=== PATIENT | female | born 1980 | race Caucasian/White ===

== ENCOUNTER 2017-03-29 05:45 | Inpatient (IN) | payer OTHER ==
--- NOTE | 2017-03-24 22:18 | PREOPHP ---
DATE OF ADMISSION: 03/19/2017 HISTORY OF PRESENT ILLNESS: This is a 35-year-old female, 5, para 1, with 3 abortions, EDC of 04/06/2017. This patient had a previous section in 2007, and she had care with me in the office since 11 weeks of . This patient is gained about 30 pounds this and she had only complications with hemorrhoids that had been thrombosed. 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 She at the beginning had the risk for placenta accrete but the placenta moved away and is low lying, it was low lying for while and then moved away, being away and anterior placenta. PAST MEDICAL HISTORY: For this section and a history of fibroids in the uterus. Otherwise has been healthy. SOCIAL HISTORY: With no history of drug addiction, smoking, alcohol, or drugs. ALLERGIES: SHE IS NOT ALLERGIC TO ANY MEDICATION. FAMILY HISTORY: For breast cancer in her grandmother. PHYSICAL EXAMINATION: VITAL SIGNS: She is 5 foot 2 inch. She weighs 165 pounds. The blood pressure is 110/60, pulse is 80, respirations 16. HEAD AND NECK: Normal. CHEST: Clear. HEART: Normal sinus rhythm. LUNGS: Clear. BREASTS: Soft, nontender, no masses. ABDOMEN: Soft. Uterus at term, with a large baby, cephalic presentation. heart tones are normal. GENITOURINARY: Pelvic examination with a nonpalpable presentation. The cervix is closed and long, posterior membranes intact. EXTREMITIES: Normal with normal pulses. Some edema. Normal reflexes. RECTAL: External hemorrhoids that had been opened twice in the last few weeks. DIAGNOSIS: The patient has a diagnosis of term , previous section, multiparity and hemorrhoids and she has been advised for a repeat section and tubal ligation. She has been advised of the possible risks and possible complications of the procedure with her alternatives and options. Written information was provided. She had no more questions, and agreed to go ahead with the procedure with full understanding and no more questions. Dictated By: Tenisha Dougherty MD /[email or web address]-pierre/ /Document#: [id number]
[~2017-03-29] VITALS: Ht 167.6 cm; Wt 73.9 kg
[~2017-03-29 05:45] MED LIST: LIDO30CR2 TP
[2017-03-29 06:24] VITALS: Ht 167.6 cm; Wt 73.9 kg
[2017-03-29 06:25] VITALS: BP 103/67; PULSE 111
[2017-03-29] MEDS ORDERED: OXYTOCIN 30 UNITS/LR 500 ML IV PRN ×2 (06:30→10:00)
[2017-03-29] MEDS ORDERED: MISOPROSTOL 200 MCG TAB PR PRN ×2 (06:30→10:00)
[2017-03-29] MEDS ORDERED: OXYTOCIN 30 UNITS/LR 500 ML IV SCH (06:30)
[2017-03-29] MEDS ORDERED: CARBOPROST 250 MCG INJ IM PRN ×2 (06:30→10:00)
[2017-03-29] MEDS ORDERED: METHYLERGONOVINE 0.2 MG INJ IM PRN ×2 (06:30→10:00)
[2017-03-29] MEDS ORDERED: CEFAZOLIN 2 GM/50 ML (PMX) 50 ML IV SCH (06:30)
[2017-03-29 06:34] LABS: BASOPHILS % 0.3 % (0.0-2.0); EOSINOPHILS # 0.1 10^3/ul (0.0-0.5); HEMATOCRIT 32.7 % (37.0-47.0); HEMOGLOBIN 11.6 g/dl (12.0-16.0); LYMPHOCYTES # 1.5 10^3/ul (0.8-2.9); LYMPHOCYTES % 19.8 % (15.0-51.0); MEAN CORPUSCULAR HEMOGLOBIN 31.8 pg (29.0-33.0); MEAN CORPUSCULAR HGB CONC 35.5 g/dl (32.0-37.0); MEAN CORPUSCULAR VOLUME 89.6 fl (82.0-101.0); MEAN PLATELET VOLUME 11.1 fl (7.4-10.4); MONOCYTE # 0.9 10^3/ul (0.3-0.9); MONOCYTES % 11.2 % (0.0-11.0); NEUTROPHILS % 66.5 % (39.0-77.0); PLATELET COUNT 136 10^3/UL (140-415); RED BLOOD COUNT 3.65 10^6/ul (4.20-5.40); RED CELL DISTRIBUTION WIDTH 13.1 % (11.5-14.5); WHITE BLOOD COUNT 7.8 10^3/ul (4.8-10.8)
[2017-03-29 06:49] LABS: INR 1.05; PROTIME 13.7 Sec (12.2-14.2); PT RATIO 1.1
[2017-03-29 06:50] LABS: PARTIAL THROMBOPLASTIN TIME 25.2 Sec (25.0-35.0)
[2017-03-29] MEDS: LACTATED RINGER'S 1,000 ML IV SCH ×3 (06:56→18:34)
[2017-03-29 06:57] LABS: POSITIVE DIFF @See below
[2017-03-29] MEDS ORDERED: EPHEDrine SULFATE 50 MG/5 ML SYG ONE (07:00)
[2017-03-29] MEDS ORDERED: ONDANSETRON 4 MG INJ ONE (07:00)
[2017-03-29] MEDS ORDERED: morphine SULFATE/PF (10 MG/10 ML) INJ ONE (07:18)
[2017-03-29] MEDS ORDERED: METOCLOPRAMIDE 10 MG INJ ONE (07:18)
[2017-03-29] MEDS ORDERED: KETOROLAC 30 MG INJ ONE (07:18)
[2017-03-29] MEDS ORDERED: CITRIC ACID/NA CITRATE 30 ML CUP ONE (07:55)
[2017-03-29] MEDS ORDERED: CITRIC ACID/NA CITRATE 30 ML CUP PO ONE (08:00)
[2017-03-29] MEDS ORDERED: PHENYLephrine (100 MCG/ML) 5ML SYG ONE (08:17)
[2017-03-29] MEDS ORDERED: FENTAnyl 50 MCG/ML VIAL ONE (09:04)
[2017-03-29] MEDS ORDERED: OXYTOCIN 30 UNITS/LR 500 ML IV ONE (09:43)
[2017-03-29] MEDS ORDERED: KETOROLAC 30 MG INJ IV PRN (10:00)
[2017-03-29] MEDS ORDERED: HYDROmorphONE (0.2 MG/ML) 10ML SYG IV PRN ×3 (10:00)
[2017-03-29] MEDS ORDERED: DIPHENHYDRAMINE 50 MG INJ IV PRN ×2 (10:00)
[2017-03-29] MEDS ORDERED: MEPERIDINE 25 MG INJ IV PRN (10:00)
[2017-03-29] MEDS ORDERED: HYDROmorphONE 1 MG/ML SYG IV PRN ×3 (10:00)
[2017-03-29] MEDS ORDERED: METOCLOPRAMIDE 10 MG INJ IV PRN (10:00)
[2017-03-29] MEDS ORDERED: LANOLIN 7 GM TUBE TOP PRN (10:00)
[2017-03-29] MEDS ORDERED: NALOXONE (0.4 MG/ML) INJ IV PRN (10:00)
[2017-03-29] MEDS ORDERED: METHYLERGONOVINE 0.2 MG TAB PO PRN (10:00)
[2017-03-29] MEDS ORDERED: ONDANSETRON 4 MG INJ IV PRN ×3 (10:00→10:30)
[2017-03-29] MEDS ORDERED: HYDROCODONE/APAP (5/325) TAB PO PRN (10:00)
[2017-03-29] MEDS ORDERED: NA PHOSPHATE/BIPHOS 133 ML ENEMA PR PRN (10:00)
[2017-03-29] MEDS: OXYTOCIN 30 UNITS/LR 500 ML IV SCH ×2 (10:27→14:21)
--- NOTE | 2017-03-29 11:26 | OPR ---
DATE OF OPERATION: 03/29/2017 PREOPERATIVE DIAGNOSES: 1. Term . 2. Placenta previa. 3. Previous section. POSTOPERATIVE DIAGNOSES: 1. Term . 2. Placenta previa. 3. Previous section. 4. Multiparity. 5. Fibroid uterus. OPERATION PERFORMED: Repeat section and bilateral salpingectomy. OPERATIVE PROCEDURE: The patient was given spinal anesthesia, placed in the supine position. The abdomen was prepped and draped and a Gomez catheter was placed in the bladder. An elliptical incision was made around the old scar and the scar was removed. The abdomen was opened in layers without difficulty. Abdominal cavity was reached. The lower uterine segment was identified and the Grey retractor was placed in. The bladder flap was made. The uterus was opened in the midline with a scalpel and the incision was increased laterally on either side for about 3 inches. We went slightly through the placenta, which was low, and we managed to get the baby out with a vacuum for speed. The baby was a baby girl, 9. The cord was clamped and cut and baby was handed over to the edi architect team. Cord blood was obtained. The placenta was removed. The uterus was swabbed out and the cervix was opened with a ring forceps. The uterus with a fibroid. The uterus was closed with #1 Monocryl continuous embedding the 1st line of suture. Hemostasis was good. Interrupted sutures were placed with the same 0 Monocryl and 0 MH chromic sutures for hemostasis, which was good. Both tubes and ovaries appeared to be normal. They were very long and the tubes were removed partially due to the fimbriated end was adherent to the ovary on both sides. So we removed first the fimbriated end and then the rest of the tube by clamping the mesosalpinx and removing a portion of the tube with hemostasis and with a 2-0 Vicryl. Hemostasis was very good and this was done on both sides. The abdominal cavity was cleaned out. The area of the was re-evaluated after washing the cavity, which was good. We put Interceed there to avoid adhesions. The peritoneum was closed with a 2-0 Vicryl suture. The fascia was closed with a 0 PDS loop suture, 2-0 Vicryl for the subcutaneous tissue, 3-0 Monocryl subcuticular to the skin and Steri-Strips and Dermabond were used. ESTIMATED BLOOD LOSS: Approximately 700 cc. The urine was clear at the end of the procedure. Dictated By: Tenisha Dougherty MD /[email or web address]-pierre/dione /Document#: [id number]
[2017-03-29] MEDS: SENNA/DOCUSATE NA (8.6MG/50MG) TAB PO SCH ×2 (12:00→20:34)
[2017-03-29 12:35] VITALS: BP 102/55; PULSE 65; RESP 17
[2017-03-29] MEDS: KETOROLAC 30 MG INJ IV SCH ×3 (12:56→23:30)
[2017-03-29] MEDS: CEFAZOLIN 2 GM/50 ML (PMX) 50 ML IVPB SCH ×2 (15:48)
[2017-03-29 16:00] VITALS: BP 99/58; PULSE 68; RESP 17
[2017-03-29 19:45] VITALS: BP 102/56; PULSE 66; RESP 18
[2017-03-30] MEDS: LACTATED RINGER'S 1,000 ML IV SCH ×2 (02:00→10:00)
[2017-03-30 04:00] VITALS: BP 92/51; PULSE 70; RESP 19
[2017-03-30] MEDS: KETOROLAC 30 MG INJ IV SCH ×4 (06:00→23:57)
[2017-03-30 07:24] LABS: BASOPHILS % 0.2 % (0.0-2.0); EOSINOPHILS # 0.1 10^3/ul (0.0-0.5); EOSINOPHILS % 0.6 % (0.0-7.0); HEMATOCRIT 30.5 % (37.0-47.0); LYMPHOCYTES # 1.1 10^3/ul (0.8-2.9); LYMPHOCYTES % 11.1 % (15.0-51.0); MEAN CORPUSCULAR HEMOGLOBIN 30.8 pg (29.0-33.0); MEAN CORPUSCULAR HGB CONC 32.8 g/dl (32.0-37.0); MEAN CORPUSCULAR VOLUME 93.8 fl (82.0-101.0); MEAN PLATELET VOLUME 11.8 fl (7.4-10.4); MONOCYTE # 0.9 10^3/ul (0.3-0.9); MONOCYTES % 9.6 % (0.0-11.0); NEUTROPHILS % 77.7 % (39.0-77.0); PLATELET COUNT 140 10^3/UL (140-415); RED BLOOD COUNT 3.25 10^6/ul (4.20-5.40); RED CELL DISTRIBUTION WIDTH 13.5 % (11.5-14.5); WHITE BLOOD COUNT 9.5 10^3/ul (4.8-10.8)
[2017-03-30 08:35] VITALS: BP 106/56; PULSE 71; RESP 18
[2017-03-30] MEDS: SENNA/DOCUSATE NA (8.6MG/50MG) TAB PO SCH ×2 (08:36→21:24)
[2017-03-30] MEDS: CEFAZOLIN 2 GM/50 ML (PMX) 50 ML IVPB SCH (08:36)
[2017-03-30] MEDS: HYDROCODONE/APAP (5/325) TAB PO PRN (08:37)
--- NOTE | 2017-03-30 15:44 | PN ---
Date/Time of Note Date/Time of Note DATE: 03/30/17 TIME: 15:43 OB Subjective Subjective Subjective Status post repeat Postop day #1 OB Objective Objective Objective Patient complaining of some incisional pain HEENT: WNL Heart: Rhythm Normal Lungs: Clear, Equal Abdomen: WNL (Incision clean dry intact) Extremities: Normal Reflexes: Normal OB Assessment/Plan Other plan: Encouraged the patient to ambulate Continue with present management SALINA SCOTT MD Mar 30, 2017 15:44
[2017-03-30 16:15] VITALS: BP 110/58; PULSE 74; RESP 20
[2017-03-30 20:05] VITALS: BP 91/56; PULSE 80; RESP 18
[2017-03-31 04:00] VITALS: BP 92/53; PULSE 81; RESP 17
[2017-03-31] MEDS: KETOROLAC 30 MG INJ IV SCH (05:39)
[2017-03-31 08:00] VITALS: BP 106/72; PULSE 67; RESP 18
[2017-03-31] MEDS: HYDROCODONE/APAP (5/325) TAB PO PRN ×2 (09:31→22:46)
[2017-03-31] MEDS: SENNA/DOCUSATE NA (8.6MG/50MG) TAB PO SCH ×2 (09:31→20:07)
--- NOTE | 2017-03-31 10:01 | PN ---
Date/Time of Note Date/Time of Note DATE: 03/30/17 TIME: 09:59 Anesthesia note: A 36year female s/p spinal duramprph is doin g well , pain is controlled, no N/V , itching, headache or chava apin. back is clean. care per surgery team Assessment/Plan VTE Prophylaxis VTE Prophylaxis Intervention: ambulation Lines/Catheters IV Catheter Type (from Nrsg): Peripheral IV Exam/Review of Systems Vital Signs Vitals Vital Signs Date Time Temp Pulse Resp B/P Pulse Ox O2 Delivery O2 Flow Rate FiO2 03/31/17 08:00 98.6 67 18 106/72 Room Air 03/30/17 05:35 98 21 Intake and Output 03/30/17 03/30/17 03/31/17 15:00 23:00 07:00 Intake Total 740 ml Output Total 1600 ml 800 ml Balance -860 ml -800 ml Results Result Diagram: 03/30/17 0608 Medications Medications Current Medications Methylergonovine Maleate (Methergine) 0.2 mg Q6H PRN PO VAGINAL BLEEDING; Start 03/29/17 at 10:00 Acetaminophen/ Hydrocodone Bitart (Mathis (5/325)) 1 tab Q4H PRN PO PAIN LEVEL 4 -6; Start 03/29/17 at 10:00 Acetaminophen/ Hydrocodone Bitart (Mathis (5/325)) 2 tab Q4H PRN PO PAIN LEVEL 7 -10 Last administered on 03/31/17 09:31; Admin Dose 2 TAB; Start 03/29/17 at 10 :00 Ibuprofen (Motrin) 800 mg Q8 PO ; Start 03/31/17 at 14:00 Simethicone (Mylicon) 160 mg Q8H PRN PO DISTENSION/GAS/BLOATING; Start at 10:00 Senna/Docusate Sodium (Senokot-S) 1 tab BID PO Last administered on 03/31/17 09:31; Admin Dose 1 TAB; Start 03/29/17 at 12:00 Sodium Biphosphate/ Sodium Phosphate (Fleet Enema) 133 ml DAILY PRN [place] CONSTIPATION; Start 03/29/17 at 10:00 Diphtheria/ Tetanus/Acell Pertussis (Adacel) 0.5 ml ONCE ONCE IM* ; Start at 09:00; Stop 04/01/17 at 09:01 Measles/Mumps/ Rubella Vaccine Live 0.5 ml 0.5 ml ONCE ONCE SC* ; Start at 09:00; Stop 04/01/17 at 09:01 Oxytocin/Lactated Ringer's 500 ml @ 0 mls/hr ONCE PRN IV For Hemorrhage Management; Start 03/29/17 at 10:00 Methylergonovine Maleate (Methergine) 0.2 mg ONCE PRN IM VAGINAL BLEEDING; Start 03/29/17 at 10:00 Carboprost Tromethamine (Hemabate) 250 mcg ONCE PRN IM VAGINAL BLEEDING; Start 03/29/17 at 10:00 Misoprostol (Cytotec) 1,000 mcg ONCE PRN [place] VAGINAL BLEEDING; Start 03/29/17 at 10:00 Ondansetron HCl (Zofran Inj) 4 mg Q4H PRN IV NAUSEA AND/OR VOMITING; Start at 10:30 WINSTON COLEMAN MD Mar 31, 2017 10:01
[2017-03-31] MEDS: IBUPROFEN 800 MG TAB PO SCH ×2 (14:09→21:34)
[2017-03-31 16:11] VITALS: BP 100/59; PULSE 67; RESP 20
--- NOTE | 2017-03-31 17:14 | PN ---
Date/Time of Note Date/Time of Note DATE: 03/31/17 TIME: 17:06 OB Subjective Subjective Subjective passing flatus no b.m OB Objective Objective Objective vss afebriel' abdomen soft wound dry lochia mod calf no tenderness OB Assessment/Plan Other Assessment: post R c/s #2 stable Other plan: d/s home in am JUDITH PALOMARES MD Mar 31, 2017 17:14
--- NOTE | 2017-03-31 17:19 | QN ---
Documentation Comment pod2 doing well vss exam wnl a/p pod 2 continue care MADIE ARANA MD Mar 31, 2017 17:19
[2017-03-31 20:00] VITALS: BP 95/50; PULSE 69; RESP 18
[2017-03-31] MEDS ORDERED: BISACODYL (EC) 5 MG TAB PO ONE (20:00)
[2017-04-01 04:15] VITALS: BP 90/51; PULSE 56; RESP 18
[2017-04-01] MEDS: HYDROCODONE/APAP (5/325) TAB PO PRN ×2 (05:03→09:36)
[2017-04-01] MEDS: IBUPROFEN 800 MG TAB PO SCH (06:00)
[2017-04-01 08:21] VITALS: BP 92/53; PULSE 69; RESP 20
[2017-04-01] MEDS ORDERED: MEASLES,MUMPS,RUBELLA VACCINE INJ SC* ONE (09:00)
[2017-04-01] MEDS ORDERED: DIPHTH/TET/ACEL PERTUSS (ADULT) 0.5 ML VIAL IM* ONE (09:00)
--- NOTE | 2017-04-01 09:33 | PD.PPDC ---
SANITATION WORKER Discharge Instruction Condition Patient Condition: Good Diet Diet: Resume Regular Diet Activity/Restrictions Activity: Normal Activity May Shower Restrictions: No Exercising No Lifting No Driving No Sexual Activity Nothing in the Vagina No Bowers No Tampons, douche Wound/Drain Care Instructions Wound/Drain Care Instructions: Remove Steri Strips in 1 week Follow-up Follow-up with Physician: 2 Return to clinic for ANALYSIS CONSULTANT Instructions: Fever greater than 101 Chills Worsening abdominal pain Excessive Vaginal Bleeding More than 2 pads per hour Unable to tolerate diet OB Instructions: Breast Tenderness Depression Blurried Vision Headache Surgical Instructions: Incisional Drainage Incisional Redness CHLOE CORDERO MD Apr 01, 2017 09:33
[2017-04-01] MEDS: SENNA/DOCUSATE NA (8.6MG/50MG) TAB PO SCH (09:35)
--- NOTE | 2017-04-02 04:49 | DS ---
DATE OF ADMISSION: 03/29/2017 DATE OF DISCHARGE: 04/01/2017 HOSPITAL COURSE: This is a 35-year-old female, 5, para 1, with previous section. She came in due to mild preeclampsia and low-lying placenta and previous section for a repeat section. She did very well after the procedure was done. The procedure was done with a bilateral salpingectomy as per her request. Her laboratory testing was near normal with a slight anemia, which she was not aware of because there were no symptoms. She was given further instructions of continuing her vitamins and iron. She was voiding well. She was tolerating diet. She had bowel movements. Incision was clean and dry and not infected and she had no active bleeding. She was ambulatory and she was given [place] and ibuprofen at the time of discharge, to see me in the office in a week or earlier if she had any problems. The patient was in good and stable condition at the time of discharge. Dictated By: Tenisha Dougherty MD /[email or web address]-pierre/sharif /Document#: [id number]
== END 2017-04-01 14:45 | disposition home or self-care (01) | DRG 765 ==
LOC: L-D 05:45 → MERGE 07:30 → EDUNIT# 07:30 → L-D 08:15 → PP1 12:48
PROVIDERS: ADMIT Obstetrics & Gynecology; ATTEND Obstetrics & Gynecology
PROC: 0UB70ZZ Excision of Bilateral Fallopian Tubes, Open Approach (ICD-10-PCS; 2017-03-29)
PROC: 10D00Z1 Extraction of Products of Conception, Low, Open Approach (ICD-10-PCS; principal; 2017-03-29 07:30)
PROC: 3E0234Z Introduction of Serum, Toxoid and Vaccine into Muscle, Percutaneous Approach (ICD-10-PCS; 2017-04-01)
DX: O34.211 Maternal care for low transverse scar from previous cesarean delivery (principal); O44.03 Complete placenta previa NOS or without hemorrhage, third trimester; D25.9 Leiomyoma of uterus, unspecified; Z37.0 Single live birth; Z3A.39 39 weeks gestation of pregnancy; Z30.2 Encounter for sterilization; O34.13 Maternal care for benign tumor of corpus uteri, third trimester; Z23 Encounter for immunization; O14.04 Mild to moderate pre-eclampsia, complicating childbirth; O90.81 Anemia of the puerperium
CPT/HCPCS: 85025; 85610; 85730; 86592; 86850; 86900; 86901; 86920; 87340; 88302; 90715; 94760; 99464; J0690; J1200; J1885; J2210; J2274; J2370; J2405; J2590; J2765; J3010; J7120